=== PATIENT | female | born 1990 | race Caucasian/White ===

== ENCOUNTER → 2023-06-26 11:43 | Outpatient (REF) | payer BC, SELFPAY ==
[2023-06-30 01:02] LABS: Aptima Media Type MultiTest Swab; Chlamydia trachomatis by TMA Negative (Negative); Neisseria gonorrhoeae by TMA Negative (Negative); Specimen Source Vaginal
== END ==
LOC: CLAB 11:43
PROVIDERS: ATTENDING PHYSICIAN Nurse Practitioner Family
DX: Z34.90 Encounter for supervision of normal pregnancy, unspecified, unspecified trimester (principal)
CPT/HCPCS: 87491; 87591

== ENCOUNTER → 2023-07-21 08:07 | Outpatient (REF) | payer BC, SELFPAY ==
[2023-07-21 09:08] LABS: % Basophils 0.4 % (0-2); % Eosinophils 1.6 % (0-6); % Immature Granulocytes 0.5 % (0-0.5); % Lymphocytes 19.8 % (20.5-51.1); % Monocytes 5.6 % (1.7-9.3); % Neutrophils 72.1 % (42.2-75.2); Absolute Eosinophils 0.2 10^3/uL (0-0.7); Absolute Immature Granulocytes 0.1 10^3/uL (0-0.05); Absolute Monocytes 0.6 10^3/uL (0.1-0.6); Absolute Neutrophils 7.2 10^3/uL (1.4-6.5); Hematocrit 30.6 % (37.0-47.0); Mean Corp Hgb Conc. 32.7 g/dL (33.0-37.0); Mean Corpuscular Hgb 24.2 pg (27.0-31.0); Mean Corpuscular Volume 74.1 fL (81.0-99.0); Mean Platelet Volume 9.6 fL (7.4-10.4); Nucleated Red Blood Cells % 0 %; Platelet Count 289 10^3/uL (130-400); Red Blood Cell Count 4.13 10^6/uL (4.20-5.40); Red Cell Dist. Width 15.5 % (11.5-14.5)
[2023-07-21 11:52] LABS: Glycohemoglobin (HgbA1c) 5.4 % (4.0-5.6)
[2023-07-23 05:09] LABS: Hepatitis B Surface Antigen Negative (Negative)
[2023-07-23 05:14] LABS: HIV Combo Negative (Negative)
[2023-07-23 05:26] LABS: Hepatitis C Antibody Negative (Negative)
[2023-07-23 19:42] LABS: Rubella Positive
[2023-07-24 14:53] LABS: Syphilis/T. pallidum Ab Reflex Negative (Negative)
== END ==
LOC: REG 08:07
PROVIDERS: ATTENDING PHYSICIAN Nurse Practitioner Family
DX: Z34.90 Encounter for supervision of normal pregnancy, unspecified, unspecified trimester (principal)
CPT/HCPCS: 80055; 83036; 84702; 86803; 86850; 86900; 86901; 87389

== ENCOUNTER → 2023-08-13 13:13 | Outpatient (REF) | payer BC, SELFPAY | LOC: REG 13:13 | PROVIDERS: ATTENDING PHYSICIAN Obstetrics & Gynecology | DX: Z34.93 Encounter for supervision of normal pregnancy, unspecified, third trimester (principal) | CPT/HCPCS: 36415 ==

== ENCOUNTER → 2023-10-09 10:21 | Outpatient (REF) | payer BC, SELFPAY | LOC: PNTC 10:21 | PROVIDERS: ATTENDING PHYSICIAN Obstetrics & Gynecology | DX: Z34.00 Encounter for supervision of normal first pregnancy, unspecified trimester (principal); Z82.79 Family history of other congenital malformations, deformations and chromosomal abnormalities | CPT/HCPCS: 76811 ==

== ENCOUNTER → 2023-10-10 13:34 | Outpatient (REF) | payer BC, SELFPAY | LOC: REG 13:34 | PROVIDERS: ATTENDING PHYSICIAN Obstetrics & Gynecology | DX: Z34.90 Encounter for supervision of normal pregnancy, unspecified, unspecified trimester (principal) | CPT/HCPCS: 36415; 82105 ==

== ENCOUNTER → 2023-10-30 10:51 | Outpatient (REF) | payer BC, SELFPAY ==
[2023-10-31 17:22] LABS: Urine Albumin Negative (Neg - Trace); Urine Bilirubin Negative (Negative); Urine Character Slightly Cloudy (Clear); Urine Color Yellow; Urine Glucose Negative (Negative); Urine Ketone Negative (Negative); Urine Leukocyte Negative (Negative); Urine Nitrite Negative (Negative); Urine Occult Blood Negative (Negative); Urine Specific Gravity 1.015 (<1.030); Urine Urobilinogen Negative (Neg - 1+)
== END ==
LOC: CLAB 10:51
PROVIDERS: ATTENDING PHYSICIAN Obstetrics & Gynecology
DX: Z34.90 Encounter for supervision of normal pregnancy, unspecified, unspecified trimester (principal)
CPT/HCPCS: 81003; 87086

== ENCOUNTER → 2023-11-28 11:13 | Outpatient (REF) | payer BC, SELFPAY ==
[2023-11-28 13:02] LABS: Hematocrit 25.9 % (37.0-47.0); Hemoglobin 8.4 g/dL (12.0-16.0); Mean Corp Hgb Conc. 32.4 g/dL (33.0-37.0); Mean Corpuscular Hgb 24.8 pg (27.0-31.0); Mean Corpuscular Volume 76.4 fL (81.0-99.0); Platelet Count 190 10^3/uL (130-400); Red Blood Cell Count 3.39 10^6/uL (4.20-5.40); Red Cell Dist. Width 15.2 % (11.5-14.5); White Blood Cell Count 9.4 10^3/uL (4.8-10.8)
[2023-11-28 15:40] LABS: 1 Hour after 50gm 145 mg/dl
[2023-11-30 11:12] LABS: Syphilis/T. pallidum Ab Reflex Negative (Negative)
== END ==
LOC: REG 11:13
PROVIDERS: ATTENDING PHYSICIAN Obstetrics & Gynecology
DX: Z13.1 Encounter for screening for diabetes mellitus (principal); Z34.02 Encounter for supervision of normal first pregnancy, second trimester
CPT/HCPCS: 36415; 82950; 85027; 86780

== ENCOUNTER → 2023-12-03 13:21 | Outpatient (REF) | payer BC, SELFPAY | LOC: PNTC 13:21 | PROVIDERS: ATTENDING PHYSICIAN Obstetrics & Gynecology | DX: O09.529 Supervision of elderly multigravida, unspecified trimester (principal) | CPT/HCPCS: 76816 ==

== ENCOUNTER → 2023-12-12 08:17 | Outpatient (REF) | payer BC, SELFPAY ==
[2023-12-12 09:00] LABS: % Basophils 0.4 % (0-2); % Eosinophils 1.4 % (0-6); % Immature Granulocytes 1.3 % (0-0.5); % Lymphocytes 16.9 % (20.5-51.1); % Monocytes 5.1 % (1.7-9.3); % Neutrophils 74.9 % (42.2-75.2); Absolute Eosinophils 0.1 10^3/uL (0-0.7); Absolute Immature Granulocytes 0.1 10^3/uL (0-0.05); Absolute Lymphocytes 1.7 10^3/uL (1.2-3.4); Absolute Monocytes 0.5 10^3/uL (0.1-0.6); Absolute Neutrophils 7.3 10^3/uL (1.4-6.5); Hematocrit 26.3 % (37.0-47.0); Hemoglobin 8.5 g/dL (12.0-16.0); Mean Corp Hgb Conc. 32.3 g/dL (33.0-37.0); Mean Corpuscular Hgb 25.1 pg (27.0-31.0); Mean Corpuscular Volume 77.8 fL (81.0-99.0); Mean Platelet Volume 10.5 fL (7.4-10.4); Nucleated Red Blood Cells % 0 %; Platelet Count 166 10^3/uL (130-400); Red Blood Cell Count 3.38 10^6/uL (4.20-5.40); Red Cell Dist. Width 16.5 % (11.5-14.5); White Blood Cell Count 9.8 10^3/uL (4.8-10.8)
[2023-12-12 09:06] LABS: Glucose for Tolerance Test 77 mg/dl
[2023-12-12 10:06] LABS: Iron 208 ug/dl (37-170)
[2023-12-12 10:17] LABS: Percent Saturation 42 % (20-50); Total Iron Binding Capacity 484 ug/dl (265-497)
[2023-12-12 12:04] LABS: Glucose for Tolerance Test 145 mg/dl
[2023-12-12 13:14] LABS: Glucose for Tolerance Test 93 mg/dl
[2023-12-12 13:19] LABS: Glucose for Tolerance Test 101 mg/dl
== END ==
LOC: REG 08:17
PROVIDERS: ATTENDING PHYSICIAN Obstetrics & Gynecology
DX: Z34.03 Encounter for supervision of normal first pregnancy, third trimester (principal)
CPT/HCPCS: 36415; 82728; 82951; 83540; 83550; 85025

== ENCOUNTER → 2024-01-14 15:50 | Outpatient (REF) | payer BC, SELFPAY | LOC: PNTC 15:50 | PROVIDERS: ATTENDING PHYSICIAN Obstetrics & Gynecology | DX: O09.529 Supervision of elderly multigravida, unspecified trimester (principal) | CPT/HCPCS: 76816 ==

== ENCOUNTER → 2024-01-18 08:02 | Outpatient (REF) | payer BC, SELFPAY | LOC: RCS 08:02 | PROVIDERS: ATTENDING PHYSICIAN Student in an Organized Health Care Education/Training Program; FAMILY PHYSICIAN Obstetrics & Gynecology | DX: R00.2 Palpitations (principal) | CPT/HCPCS: 93306 ==

== ENCOUNTER → 2024-01-28 13:52 | Outpatient (REF) | payer BC, SELFPAY | LOC: CPAP 13:52 | PROVIDERS: ATTENDING PHYSICIAN Obstetrics & Gynecology | DX: Z36.85 Encounter for antenatal screening for Streptococcus B (principal) | CPT/HCPCS: 87070 ==

== ENCOUNTER 2024-02-04 13:42 | Outpatient (RCR) | payer BC, SELFPAY ==
[2024-01-21 13:00] VITALS: BP 118/70
[2024-01-21] MEDS: VENOFER 110 MG IV (13:14)
[2024-01-21 14:15] VITALS: BP 111/73
[2024-01-21 14:45] VITALS: BP 118/70
[2024-01-28 10:49] VITALS: BP 118/67
[2024-01-28] MEDS: VENOFER 110 MG IV (11:03)
[2024-01-28 12:10] VITALS: BP 114/68
[2024-02-04 13:51] VITALS: BP 127/83
[2024-02-04] MEDS: VENOFER 110 MG IV (14:13)
[2024-02-04 14:36] LABS: % Basophils 0.3 % (0-2); % Eosinophils 1.3 % (0-6); % Immature Granulocytes 1.3 % (0-0.5); % Monocytes 5.6 % (1.7-9.3); % Neutrophils 75.5 % (42.2-75.2); Absolute Eosinophils 0.1 10^3/uL (0-0.7); Absolute Immature Granulocytes 0.1 10^3/uL (0-0.05); Absolute Lymphocytes 1.4 10^3/uL (1.2-3.4); Absolute Monocytes 0.5 10^3/uL (0.1-0.6); Absolute Neutrophils 6.7 10^3/uL (1.4-6.5); Hematocrit 31.3 % (37.0-47.0); Hemoglobin 10.3 g/dL (12.0-16.0); Mean Corp Hgb Conc. 32.9 g/dL (33.0-37.0); Mean Corpuscular Hgb 26.4 pg (27.0-31.0); Mean Corpuscular Volume 80.3 fL (81.0-99.0); Mean Platelet Volume 11.2 fL (7.4-10.4); Nucleated Red Blood Cells % 0 %; Platelet Count 145 10^3/uL (130-400); Red Cell Dist. Width 21.1 % (11.5-14.5); White Blood Cell Count 8.9 10^3/uL (4.8-10.8)
[2024-02-04 15:22] VITALS: BP 114/75
== END 2024-02-05 09:18 | disposition home or self-care (01) ==
LOC: OID 13:42
PROVIDERS: ATTENDING PHYSICIAN Internal Medicine Hematology & Oncology
DX: O99.019 Anemia complicating pregnancy, unspecified trimester (principal); D50.9 Iron deficiency anemia, unspecified
CPT/HCPCS: 36415; 85025; 96365; J1756

== ENCOUNTER 2024-02-18 10:47 | Outpatient (RCR) | payer BC, SELFPAY ==
[2024-02-11] MEDS: VENOFER 110 MG IV (10:23)
[2024-02-11 10:26] VITALS: BP 114/72
[2024-02-11 11:40] VITALS: BP 110/64
[2024-02-18 10:50] VITALS: BP 110/75
[2024-02-18] MEDS: VENOFER 110 MG IV (11:07)
[2024-02-18 11:33] LABS: % Basophils 0.3 % (0-2); % Eosinophils 1.3 % (0-6); % Immature Granulocytes 1.6 % (0-0.5); % Lymphocytes 16.4 % (20.5-51.1); % Monocytes 5.5 % (1.7-9.3); % Neutrophils 74.9 % (42.2-75.2); Absolute Eosinophils 0.1 10^3/uL (0-0.7); Absolute Immature Granulocytes 0.2 10^3/uL (0-0.05); Absolute Lymphocytes 1.6 10^3/uL (1.2-3.4); Absolute Monocytes 0.5 10^3/uL (0.1-0.6); Absolute Neutrophils 7.1 10^3/uL (1.4-6.5); Hematocrit 33.1 % (37.0-47.0); Hemoglobin 11.1 g/dL (12.0-16.0); Mean Corp Hgb Conc. 33.5 g/dL (33.0-37.0); Mean Corpuscular Hgb 27.1 pg (27.0-31.0); Mean Corpuscular Volume 80.7 fL (81.0-99.0); Nucleated Red Blood Cells % 0 %; Platelet Count 141 10^3/uL (130-400); Red Cell Dist. Width 21.7 % (11.5-14.5); White Blood Cell Count 9.5 10^3/uL (4.8-10.8)
== END 2024-02-19 09:50 | disposition home or self-care (01) ==
LOC: OID 10:47
PROVIDERS: ATTENDING PHYSICIAN Internal Medicine Hematology & Oncology
DX: D50.9 Iron deficiency anemia, unspecified (principal); O99.019 Anemia complicating pregnancy, unspecified trimester
CPT/HCPCS: 36415; 85025; 96365; J1756

== ENCOUNTER 2024-02-21 05:59 | Inpatient (IN) | payer BC, SELFPAY ==
[2024-02-21 06:17] VITALS: BP 134/76; BMI 28.1
[2024-02-21] MEDS: LR 1000 IV ×3 (07:30→17:45)
[2024-02-21 08:26] LABS: % Basophils 0.3 % (0-2); % Eosinophils 0.8 % (0-6); % Immature Granulocytes 1.5 % (0-0.5); % Lymphocytes 14.3 % (20.5-51.1); % Monocytes 5.3 % (1.7-9.3); % Neutrophils 77.8 % (42.2-75.2); Absolute Eosinophils 0.1 10^3/uL (0-0.7); Absolute Immature Granulocytes 0.2 10^3/uL (0-0.05); Absolute Lymphocytes 1.7 10^3/uL (1.2-3.4); Absolute Monocytes 0.7 10^3/uL (0.1-0.6); Absolute Neutrophils 9.5 10^3/uL (1.4-6.5); Hematocrit 35.1 % (37.0-47.0); Hemoglobin 11.8 g/dL (12.0-16.0); Mean Corp Hgb Conc. 33.6 g/dL (33.0-37.0); Mean Corpuscular Hgb 27.6 pg (27.0-31.0); Nucleated Red Blood Cells % 0 %; Platelet Count 149 10^3/uL (130-400); Red Blood Cell Count 4.28 10^6/uL (4.20-5.40); Red Cell Dist. Width 21.9 % (11.5-14.5); White Blood Cell Count 12.2 10^3/uL (4.8-10.8)
[2024-02-21] MEDS: FENTANYL/BUPIVACAINE 100 EPIDURAL ×2 (11:58→19:41)
[2024-02-21] MEDS: SUBLIMAZE 100 MCG EPIDURAL (11:58)
[2024-02-21] MEDS: PITOCIN 30 UNITS/NSS 500 ML IV (14:00)
[2024-02-21] MEDS: ZOFRAN 4 MG IV (17:04)
[2024-02-22] MEDS: PITOCIN 30 UNITS/NSS 500 ML IV (00:57)
[2024-02-22 01:10] LABS: Cord ABG Comment CORD BLOOD
[2024-02-22 01:11] LABS: B.E. Cord ABG -6.2 mMOL/L; HCO3 Cord ABG 19.6 mmol/L; O2 Saturation % Cord ABG 73.9 %; PCO2 Cord ABG 39 mmHg; PO2 Cord ABG 30 mmHg; pH Cord ABG 7.31
[2024-02-22 01:13] LABS: B.E. Cord ABG -7.8 mMOL/L; HCO3 Cord ABG 20.7 mmol/L; O2 Saturation % Cord ABG 39.6 %; PCO2 Cord ABG 53 mmHg; PO2 Cord ABG 21 mmHg
[2024-02-22] MEDS: MOTRIN 600 MG PO ×3 (08:53→22:04)
[2024-02-22] MEDS: PRENATAL PLUS 1 TABLET PO (22:04)
[2024-02-23] MEDS: MOTRIN 600 MG PO ×3 (04:06→16:58)
[2024-02-23 04:29] LABS: Hematocrit 32.8 % (37.0-47.0); Hemoglobin 10.6 g/dL (12.0-16.0)
[2024-02-23] MEDS: SENOKOT-S 1 TABLET PO (08:37)
[2024-02-23] MEDS: TYLENOL 650 MG PO ×2 (11:36→21:01)
[2024-02-23] MEDS: PRENATAL PLUS 1 TABLET PO (21:01)
[2024-02-24] MEDS: MOTRIN 600 MG PO (00:17)
[2024-02-24] MEDS: TYLENOL 650 MG PO ×2 (03:51→12:00)
[2024-02-26 12:38] LABS: Syphilis/T. pallidum Ab Reflex Negative (Negative)
== END 2024-02-24 13:20 | disposition home or self-care (01) | DRG 807 ==
LOC: LDRP 05:59
PROVIDERS: Obstetrics & Gynecology; ADMITTING PHYSICIAN Obstetrics & Gynecology
PROC: 10E0XZZ Delivery of Products of Conception, External Approach (ICD-10-PCS; 2024-02-22)
PROC: 0HQ9XZZ Repair Perineum Skin, External Approach (ICD-10-PCS; 2024-02-22)
DX: O32.6XX0 Maternal care for compound presentation, not applicable or unspecified (principal); Z37.0 Single live birth; Z3A.39 39 weeks gestation of pregnancy; O70.0 First degree perineal laceration during delivery; O77.0 Labor and delivery complicated by meconium in amniotic fluid
CPT/HCPCS: 88307; 88312; 82803; 85014; 85018; 85025; 86780; 86850; 86900; 86901

== ENCOUNTER → 2024-04-04 12:02 | Outpatient (REF) | payer BC, SELFPAY | LOC: UCDH 12:02 | PROVIDERS: ATTENDING PHYSICIAN Emergency Medicine | DX: J98.9 Respiratory disorder, unspecified (principal) | CPT/HCPCS: 71046 ==

== ENCOUNTER → 2024-12-24 13:31 | Outpatient (REF) | payer BC, SELFPAY | LOC: CLAB 13:31 | PROVIDERS: ATTENDING PHYSICIAN Obstetrics & Gynecology | DX: Z32.01 Encounter for pregnancy test, result positive (principal) | CPT/HCPCS: 87491; 87591 ==

== ENCOUNTER → 2024-12-27 07:27 | Outpatient (REF) | payer BC, SELFPAY ==
[2024-12-27 08:49] LABS: Hematocrit 35.6 % (37.0-47.0); Hemoglobin 12.0 g/dL (12.0-16.0); Mean Corp Hgb Conc. 33.7 g/dL (33.0-37.0); Mean Corpuscular Volume 84.8 fL (81.0-99.0); Nucleated Red Blood Cells % 0 %; Platelet Count 235 10^3/uL (130-400); Red Cell Dist. Width 13.1 % (11.5-14.5)
[2024-12-27 09:13] LABS: Urine Character Clear (Clear)
[2024-12-27 09:48] LABS: Urine Squamous Cell >30 /LPF (Few)
[2024-12-27 09:50] LABS: Urine Red Blood Cell 0-2 /HPF (0-2)
[2024-12-27 10:16] LABS: Beta HCG Quantitative 107280.00 mIU/ml
[2024-12-27 10:22] LABS: Glycohemoglobin (HgbA1c) 5.0 % (4.0-5.6)
[2024-12-27 20:52] LABS: Hepatitis B Surface Antigen Negative (Negative)
[2024-12-27 21:10] LABS: Hepatitis C Antibody Negative (Negative)
== END ==
LOC: REG 07:27
PROVIDERS: ATTENDING PHYSICIAN Obstetrics & Gynecology
DX: Z32.01 Encounter for pregnancy test, result positive (principal)
CPT/HCPCS: 36415; 81003; 81015; 83036; 84702; 85025; 86704; 86706; 86762; 86780; 86803; 86850; 86900; 86901; 87086; 87340; 87389

== ENCOUNTER → 2025-01-21 09:22 | Outpatient (REF) | payer BC, SELFPAY | LOC: PNTC 09:22 | PROVIDERS: ATTENDING PHYSICIAN Obstetrics & Gynecology | DX: Z36.0 Encounter for antenatal screening for chromosomal anomalies (principal); Z36.82 Encounter for antenatal screening for nuchal translucency | CPT/HCPCS: 36415; 76801; 76813 ==

== ENCOUNTER → 2025-02-17 13:55 | Outpatient (REF) | payer BC, SELFPAY | LOC: PNTC 13:55 | PROVIDERS: ATTENDING PHYSICIAN Obstetrics & Gynecology | DX: O09.522 Supervision of elderly multigravida, second trimester (principal); Z36.3 Encounter for antenatal screening for malformations | CPT/HCPCS: 76805 ==

== ENCOUNTER → 2025-03-23 13:33 | Outpatient (REF) | payer BC, SELFPAY | LOC: PNTC 13:33 | PROVIDERS: ATTENDING PHYSICIAN Obstetrics & Gynecology | DX: O09.523 Supervision of elderly multigravida, third trimester (principal) | CPT/HCPCS: 76811; 76817 ==